=== PATIENT | female | born 1950 | race Caucasian/White ===

== ENCOUNTER 2020-06-12 18:55 | Emergency (ER) | payer OTHER, MEDICARE ==
[2020-06-12] MEDS ORDERED: DIPHENHYDRAMINE 50 MG/ML VIAL ONE (19:30)
[2020-06-12] MEDS ORDERED: METHYLPREDNISOLONE 125 MG INJ ONE (19:30)
[2020-06-12] MEDS ORDERED: FAMOTIDINE 20 MG/2 ML VIAL IV ONE (19:30)
[2020-06-12] MEDS ORDERED: NA CHLORIDE 0.9% 1,000 ML ONE ×2 (19:30→21:37)
[2020-06-12 19:42] LABS: Absolute Lymphocytes (CBC) 0.4 K/uL (0.7-4.9); Basophils % 0.1 % (0-1.3); Hematocrit 43.7 % (36.0-45.0); Lymphocytes % 8.1 % (15.3-44.8); MPV 10.5 fL (7.6-11.3); RBC Red Blood Cell Count 4.72 M/uL (3.86-4.86)
[2020-06-12 20:26] LABS: ALT/SGPT 25 U/L (12-78); AST/SGOT 24 U/L (15-37); Albumin 3.6 g/dL (3.4-5.0); Alkaline Phosphatase 130 U/L (45-117); BUN Blood Urea Nitrogen 13 mg/dL (7-18); Bicarbonate 26 mmol/L (21-32); Bilirubin Direct < 0.1 mg/dL (0-0.2); Bilirubin Total 0.3 mg/dL (0.2-1.0); Glucose Level 141 mg/dL (74-106); Lipase 206 U/L (73-393); Potassium 4.4 mmol/L (3.5-5.1); Protein, Total 7.7 g/dL (6.4-8.2); Sodium Level 137 mmol/L (136-145)
[2020-06-12] MEDS ORDERED: ACETAMINOPHEN 500 MG TAB ONE (20:55)
[2020-06-12 22:12] LABS: Urine Blood TRACE (NEG); Urine Glucose NEGATIVE (NEG); Urine Protein NEGATIVE (NEG); Urine Specific Gravity 1.015 (1.005-1.030); Urine pH 5.5 (5.0-7.0)
[2020-06-12 22:27] LABS: Urine Bacteria 20-50 /HPF (<20); Urine Mucus 1+ /HPF (NONE SEEN)
--- NOTE | 2020-06-12 23:35 | ER ---
Nurse's Notes [facility] Name: Stephanie Barahona Age: 69 yrs Sex: Female : 1950 Arrival Date: 06/12/2020 Time: 18:57 Bed 5 Private MD: Diagnosis: Urticaria, unspecified;Urinary tract infection, site not specified;Dehydration Presentation: 06/12 19:02 Chief complaint: Patient states: rash to whole body that began 1 hr ago. Pt denies SOB. aa5 19:02 Coronavirus screen: Client denies travel out of the [place] in the last 14 days. At this aa5 time, the client does not indicate any symptoms associated with coronavirus-19. Ebola Screen: Patient negative for fever greater than or equal to 101.5 degrees Fahrenheit, and additional compatible Ebola Virus Disease symptoms. Onset: The symptoms/episode began/occurred acutely, 1 hour(s) ago. Anaphylaxis evaluation, no signs or symptoms of anaphylaxis were noted. Initial Sepsis Screen: Does the patient meet any 2 criteria? No. Patient's initial sepsis screen is negative. Does the patient have a suspected source of infection? No. Patient's initial sepsis screen is negative. Risk Assessment: Do you want to hurt yourself or someone else? Patient reports no desire to harm self or others. Onset of symptoms was May 2020. 19:02 Method Of Arrival: Ambulatory aa5 19:02 Acuity: THIEN 2 aa5 Historical: - Allergies: 19:02 No Known Allergies; aa5 - PMHx: 19:02 Thyroid problem; aa5 - Immunization history:: Adult Immunizations unknown. - Social history:: Smoking status: Patient denies any tobacco usage or history of. Screenin:37 Abuse screen: Denies threats or abuse. Denies injuries from another. Nutritional rr5 screening: No deficits noted. Tuberculosis screening: No symptoms or risk factors identified. Fall Risk IV access (20 points). Total Goddard Fall Scale indicates No Risk (0-24 pts). Assessment: 19:15 General: Appears in no apparent distress. uncomfortable, Behavior is calm, cooperative, rr5 appropriate for age. Pain: Denies pain. Neuro: Level of Consciousness is awake, alert, obeys commands, Oriented to person, place, time, situation. Cardiovascular: Capillary refill < 3 seconds Patient's skin is warm and dry. Respiratory: Airway is patent Respiratory effort is even, unlabored, Respiratory pattern is regular, symmetrical, Denies shortness of breath. GI: Abdomen is round non-distended. : Denies burning with urination. EENT: No signs and/or symptoms were reported regarding the EENT system. Derm: Skin is intact, is healthy with good turgor, Skin is pink, warm \T\ dry. Rash noted that is papular, red, raised, on face, back, chest, abdomen, right arm and left arm. Musculoskeletal: Circulation, motion, and sensation intact. Capillary refill < 3 seconds. 20:20 Reassessment: Patient appears in no apparent distress at this time. Patient is alert, rr5 oriented x 3, equal unlabored respirations, skin warm/dry/pink. Patient states symptoms have improved. 20:55 : Reports had a bladder infection a week ago went to finished the course of rr5 bactrim antibiotic, yesterday I still have bladder infection they prescribed me ciprofloxacin but I have not started the dose. 22:05 Reassessment: Patient appears in no apparent distress at this time. Patient is alert, rr5 oriented x 3, equal unlabored respirations, skin warm/dry/pink. awaiting for CT result. 23:43 Reassessment: Patient appears in no apparent distress at this time. Patient is alert, rr5 oriented x 3, equal unlabored respirations, skin warm/dry/pink. discharge instruction given and explained without complaints made Patient states feeling better. Patient states symptoms have improved. Vital Signs: 19:02 BP 133 / 89; Pulse 125; Resp 20 S; Temp 99.9(O); Pulse Ox 100% on R/A; aa5 19:40 BP 126 / 89; Pulse 115; Resp 19; Pulse Ox 99% ; rr5 20:44 BP 114 / 69; Pulse 110; Resp 18; Temp 99.8; Pulse Ox 100% ; rr5 23:10 BP 120 / 67; Pulse 95; Resp 19; Pulse Ox 99% ; rr5 23:42 BP 116 / 80; Pulse 90; Resp 17; Pulse Ox 99% ; rr5 ED Course: 18:57 Patient arrived in ED. rg4 19:02 Evin Nguyen MD is Attending Physician. 7 19:02 Arm band placed on Patient placed in an exam room, on a stretcher. aa5 19:06 Triage completed. aa5 19:06 Master Joseph, RN is Primary Nurse. rr5 19:30 Inserted saline lock: 20 gauge in right antecubital area, using aseptic technique. rr5 Blood collected. 19:37 Patient has correct armband on for positive identification. Bed in low position. Call rr5 light in reach. library monitor on. Pulse ox on. NIBP on. 19:37 No provider procedures requiring assistance completed. EKG done, by ED staff, reviewed rr5 by Evin Nguyen MD. 22:43 CT Abd/Pelvis - IV Contrast Only In Process Unspecified. EDMS 23:43 IV discontinued, intact, bleeding controlled, No redness/swelling at site. Pressure rr5 dressing applied. Administered Medications: 09:30 Drug: Pepcid 20 mg Route: IVP; Site: right antecubital; rr5 20:47 Follow up: Response: No adverse reaction rr5 19:30 Drug: NS 0.9% 1000 ml Route: IV; Rate: 1000 ml; Site: right antecubital; rr5 20:44 Follow up: Response: No adverse reaction; IV Status: Completed infusion; IV Intake: rr5 1000ml 19:32 Drug: SOLU-Medrol 125 mg Route: IVP; Site: right antecubital; rr5 20:32 Follow up: Response: No adverse reaction rr5 19:34 Drug: Benadryl 50 mg Route: IVP; Site: right antecubital; rr5 20:30 Follow up: Response: No adverse reaction rr5 20:53 Drug: Tylenol 1000 mg Route: PO; rr5 22:00 Follow up: Response: No adverse reaction rr5 21:27 Drug: NS 0.9% 1000 ml Route: IV; Rate: 1000 ml; Site: right antecubital; rr5 22:50 Follow up: Response: No adverse reaction; IV Status: Completed infusion; IV Intake: rr5 1000ml 22:05 CANCELLED (wrong patient): Albuterol HFA Inhaler 2 puffs Inhalation once 7 Intake: 20:44 IV: 1000ml; Total: 1000ml. rr5 22:50 IV: 1000ml; Total: 2000ml. rr5 Outcome: 23:35 Discharge ordered by . 7 23:43 Discharged to home ambulatory, with family. rr5 23:43 Condition: stable 23:43 Discharge instructions given to patient, Instructed on discharge instructions, follow up and referral plans. medication usage, Demonstrated understanding of instructions, follow-up care, medications, Prescriptions given X 3. 23:44 Patient left the ED. rr5 Signatures: Dispatcher [employer] EDShavon Cross RN RN aa5 Comfort Barahona 4 Master Joseph RN RN rr5 Evin Nguyen MD MD mh7 Corrections: (The following items were deleted from the chart) 19:06 19:02 Acuity: THIEN 3 aa5 aa5
--- NOTE | 2020-06-12 23:35 | EDPHYS ---
Physician Documentation [facility] Name: Stephanie Barahona Age: 69 yrs Sex: Female : 1950 Arrival Date: 06/12/2020 Time: 18:57 Bed 5 Private MD: ED Physician Evin Nguyen HPI: 06/12 19:20 This 69 yrs old Female presents to ER via Ambulatory with complaints of [facility] 19:20 The patient's rash thought to be caused by an unknown cause. The rash is located on the mh7 body diffusely. The rash can be described as urticarial. Onset: The symptoms/episode began/occurred today, 1.5 hour(s) ago. Associated signs and symptoms: Pertinent positives: itching, Pertinent negatives: burning sensation, difficulty breathing, fever, nausea, Pain swelling of lips, swelling of throat, swelling of tongue, vomiting, wheezing. Severity of symptoms: At their worst the symptoms were moderate today. 19:28 Severity of symptoms: in the emergency department the symptoms are unchanged. Treatment mh7 given at home: None. Historical: - Allergies: 19:02 No Known Allergies; aa5 - PMHx: 19:02 Thyroid problem; aa5 - Immunization history:: Adult Immunizations unknown. - Social history:: Smoking status: Patient denies any tobacco usage or history of. ROS: 19:28 Constitutional: Negative for fever, chills, and weight loss, Eyes: Negative for injury, mh7 pain, redness, and discharge, ENT: Negative for injury, pain, and discharge, Neck: Negative for injury, pain, and swelling, Cardiovascular: Negative for chest pain, palpitations, and edema, Respiratory: Negative for shortness of breath, cough, wheezing, and pleuritic chest pain. 19:28 Back: Negative for injury and pain. 19:28 : Negative for injury, bleeding, discharge, and swelling, MS/Extremity: Negative for injury and deformity, Neuro: Negative for headache, weakness, numbness, tingling, and seizure, Psych: Negative for depression, anxiety, suicide ideation, homicidal ideation, and hallucinations, Allergy/Immunology: Negative for hives, rash, and allergies, Endocrine: Negative for neck swelling, polydipsia, polyuria, polyphagia, and marked weight changes, Hematologic/Lymphatic: Negative for swollen nodes, abnormal bleeding, and unusual bruising. 19:28 Abdomen/GI: Positive for abdominal pain. 19:28 Abdomen/GI: Negative for nausea and vomiting, nausea, vomiting, and diarrhea, nausea, vomiting, diarrhea, constipation, abdominal cramps, abdominal distension, anorexia, dysphagia, hematemesis, black/tarry stool, rectal pain, rectal bleeding, bowel incontinence, flatulence. Exam: 19:28 Eyes: Pupils equal round and reactive to light, extra-ocular motions intact. Lids and mh7 lashes normal. Conjunctiva and sclera are non-icteric and not injected. Cornea within normal limits. Periorbital areas with no swelling, redness, or edema. ENT: Nares patent. No nasal discharge, no septal abnormalities noted. Tympanic membranes are normal and external auditory canals are clear. Oropharynx with no redness, swelling, or masses, exudates, or evidence of obstruction, uvula midline. Mucous membranes moist. Neck: Trachea midline, no thyromegaly or masses palpated, and no cervical lymphadenopathy. Supple, full range of motion without nuchal rigidity, or vertebral point tenderness. No Meningismus. 19:28 Neuro: Awake and alert, GCS 15, oriented to person, place, time, and situation. Cranial nerves II-XII grossly intact. Motor strength 5/5 in all extremities. Sensory grossly intact. Cerebellar exam normal. Normal gait. Psych: Awake, alert, with orientation to person, place and time. Behavior, mood, and affect are within normal limits. 19:28 Constitutional: The patient appears in no acute distress, alert, awake, uncomfortable. 19:28 Head/face: Noted is rash, of the forehead, right cheek and left cheek. 19:28 Chest/axilla: Inspection: rash, that is mild, Palpation: is normal, Axilla: are normal, Lymph nodes: lymphadenopathy is not appreciated. 19:28 Cardiovascular: Rate: tachycardic, Rhythm: regular, Pulses: no pulse deficits are appreciated, Heart sounds: normal, normal S1and S2, Edema: is not appreciated, JVD: is not appreciated. 19:28 Abdomen/GI: Inspection: erythematous, urticarial, all quadrants, Bowel sounds: normal, in all quadrants, Palpation: abdomen is soft and non-tender, in all quadrants, Rectal exam: the exam is deferred, because of patient request, Indicators: McBurney's point is not tender, Green's sign is negative, Rovsing's sign is negative, Obturator sign is negative, Psoas sign is negative, Liver: no appreciated palpable abnormalities, Hernia: not appreciated. 19:28 Back: pain, is absent, ROM is normal, normal spinal alignment noted, CVA tenderness, is absent, vertebral tenderness, is not appreciated, muscle spasm, is not present, urticarial rash, diffusely. 19:28 Musculoskeletal/extremity: Extremities: noted in the right arm and left arm: rash, ROM: intact in all extremities, Circulation is intact in all extremities. Pulses: are normal with no appreciated deficits, Sensation intact. Compartment Syndrome exam of affected extremity: is normal. no pain, no numbness, no tingling, no sensation deficit, no palor, no weak pulses, Joints: All joints appear normal with full range of motion. Weight bearing: able to fully bear weight, without difficulty, Tendon exam: specific tendon testing normal through active and passive range of motion 19:28 Skin: urticaria, on the back, chest, abdomen, right arm and left arm. Vital Signs: 19:02 BP 133 / 89; Pulse 125; Resp 20 S; Temp 99.9(O); Pulse Ox 100% on R/A; aa5 19:40 BP 126 / 89; Pulse 115; Resp 19; Pulse Ox 99% ; rr5 20:44 BP 114 / 69; Pulse 110; Resp 18; Temp 99.8; Pulse Ox 100% ; rr5 23:10 BP 120 / 67; Pulse 95; Resp 19; Pulse Ox 99% ; rr5 23:42 BP 116 / 80; Pulse 90; Resp 17; Pulse Ox 99% ; rr5 MDM: 23:33 Differential diagnosis: impetigo, allergic reaction, Urticaria. Data reviewed: vital mh7 signs, nurses notes, lab test result(s), CBC, electrolytes, urinalysis, radiologic studies, CT scan. Data interpreted: Pulse oximetry: on room air is 99 %. Interpretation: normal. Counseling: I had a detailed discussion with the patient and/or guardian regarding: the historical points, exam findings, and any diagnostic results supporting the discharge/admit diagnosis, lab results, radiology results, the need for outpatient follow up, to return to the emergency department if symptoms worsen or persist or if there are any questions or concerns that arise at home. Response to treatment: the patient's symptoms have markedly improved after treatment. 23:35 [facility] 23[facility]38 ED course: Well appearing, NAD, VSS. No complaints. Tolerating PO intake without [facility] difficulty. Patient was prescribed Cipro by her PCP for UTI but has not started taking it yet. She will start taking it as it was prescribed.. 06/12 19:13 Order name: Basic Metabolic Panel; Complete Time: 20:33 7 06/12 19:13 Order name: CBC with Diff; Complete Time: 20:33 [facility] 06/12 19:13 Order name: Hepatic Function; Complete Time: 20:33 [facility] 06/12 19:13 Order name: Lipase; Complete Time: 20:33 [facility] 06/12 21:51 Order name: Rapid Strep; Complete Time: 22:26 [facility] 06/12 22:07 Order name: Urine Microscopic Only; Complete Time: 23:20 [facility] 06/12 21:51 Order name: CT Abd/Pelvis - IV Contrast Only [facility] 06/12 22:07 Order name: Urine Culture [facility] 06/12 22:10 Order name: Urine Dipstick--Ancillary (enter results); Complete Time: 22:26 [facility] 06/12 22:15 Order name: Throat Culture [facility] 06/12 19:13 Order name: IV Saline Lock; Complete Time: 19:35 7 06/12 19:13 Order name: Labs collected and sent; Complete Time: 19:35 [facility] 06/12 19:13 Order name: Urine Dipstick-Ancillary (obtain specimen); Complete Time: 22:07 [facility] 06/12 19:14 Order name: EKG - Nurse/Tech; Complete Time: 19:36 7 Administered Medications: 09:30 Drug: Pepcid 20 mg Route: IVP; Site: right antecubital; rr5 20:47 Follow up: Response: No adverse reaction rr5 19:30 Drug: NS 0.9% 1000 ml Route: IV; Rate: 1000 ml; Site: right antecubital; rr5 20:44 Follow up: Response: No adverse reaction; IV Status: Completed infusion; IV Intake: rr5 1000ml 19:32 Drug: SOLU-Medrol 125 mg Route: IVP; Site: right antecubital; rr5 20:32 Follow up: Response: No adverse reaction rr5 19:34 Drug: Benadryl 50 mg Route: IVP; Site: right antecubital; rr5 20:30 Follow up: Response: No adverse reaction rr5 20:53 Drug: Tylenol 1000 mg Route: PO; rr5 22:00 Follow up: Response: No adverse reaction rr5 21:27 Drug: NS 0.9% 1000 ml Route: IV; Rate: 1000 ml; Site: right antecubital; rr5 22:50 Follow up: Response: No adverse reaction; IV Status: Completed infusion; IV Intake: rr5 1000ml 22:05 CANCELLED (wrong patient): Albuterol HFA Inhaler 2 puffs Inhalation once 7 Disposition: 06/12/20 23:35 Discharged to Home. Impression: Urticaria, unspecified, Urinary tract infection, site not specified, Dehydration. - Condition is Stable. - Discharge Instructions: Dehydration, Adult, Urinary Tract Infection, Adult, [id number], Hives, [id number]. - Prescriptions for Benadryl 25 mg Oral Capsule - take 1 capsule by ORAL route every 6 hours As needed; 30 tablet. Pepcid 20 mg Oral Tablet - take 1 tablet by ORAL route every 12 hours for 5 days; 10 tablet. Pyridium 200 mg Oral Tablet - take 1 tablet by ORAL route every 8 hours for 2 days; 6 tablet. Prednisone 20 mg Oral Tablet - take 2 tablet by ORAL route once daily for 5 days; 10 tablet. - Medication Reconciliation Form, Thank You Letter, Antibiotic Education, Prescription Opioid Use form. - Follow up: Private Physician; When: 1 - 2 days; Reason: Worsening of condition, Recheck today's complaints, Continuance of care, Re-evaluation by your physician. - Problem is new. - Symptoms have improved. Signatures: Dispatcher [employer] EDMS Shavon Tellez RN RN aa5 Master Joseph RN RN rr5 Evin Nguyen MD MD 7 Corrections: (The following items were deleted from the chart) 22:05 22:05 Albuterol HFA Inhaler 2 puffs Inhalation once ordered. 7 mh7 23:44 23:35 06/12/2020 23:35 Discharged to Home. Impression: Urticaria, unspecified; Urinary rr5 tract infection, site not specified; Dehydration. Condition is Stable. Forms are Medication Reconciliation Form, Thank You Letter, Antibiotic Education, Prescription Opioid Use. Follow up: Private Physician; When: 1 - 2 days; Reason: Worsening of condition, Recheck today's complaints, Continuance of care, Re-evaluation by your physician. Problem is new. Symptoms have improved. mh7
--- NOTE | 2020-06-14 17:13 | RAD REPORT ---
EXAM DESCRIPTION: CT - Abdomen Pelvis W Contrast - 06/13/2020 7:02 am CLINICAL HISTORY: 69 years Female ABD PAIN COMPARISON: None TECHNIQUE: Images were obtained in axial, sagittal, and coronal planes. Intravenous contrast was adm inistered. This exam was performed according to our departmental dose-optimization program which includes use of Automated Exposure Control, adjustment of the mA and/or kV according to patient size and/or use of iterative reconstruction technique. FINDINGS: No abnormality involving the liver, spleen, pancreas, gallbladder, and adrenal glands bila terally. No obstructing renal or ureteral calculi bilaterally. Mild bilateral hydronephrosis right greater hailey n left. No perinephric stranding bilaterally. Moderate bladder distention. No abnormal mucosal thicke kevin involving the bladder. Appendix not well identified however no secondary signs for appendicitis. No bowel obstruction, perfo ration, or inflammation. No abnormality of the abdominal aorta or portal vein. No adenopathy or abnormal fluid collections see n. No acute osseous abnormality. No abnormalities lower lungs bilaterally. IMPRESSION: No obstructing renal or ureteral calculi bilaterally. Mild bilateral hydronephrosis righ t greater than left possibly related to bladder distention. Otherwise unremarkable study. . Electronically signed by: Kamini Alas MD 06/12/2020 11:17 PM [employer]ODUCTION SUPER[employer]OR Due to temporary technical issues with the PACS/Fluency reporting system, reports are being signed by the in house radiologists without review as a courtesy to insure prompt reporting. The interpreting radiologist is fully responsible for the content of the report.
[2020-06-15 18:46] VITALS: TEMP 99.8
[2020-06-15 18:47] VITALS: O2SAT 99
[2020-06-15 18:48] VITALS: BP 116/80
== END 2020-06-12 23:44 | disposition home or self-care (01) ==
LOC: ER 18:55
DX: N39.0 Urinary tract infection, site not specified (principal); E86.0 Dehydration
CPT/HCPCS: 96361; 87070; 87088; 85025; 87086; 80048; 36415; 80076; 87081; 83690; 74177; 96375; 96374; 99285; Q9967; J1200; J7030 ×2; J2930; 81003; 81015; 93005